=== PATIENT | male | born 1955 | race Caucasian/White ===

== ENCOUNTER 2022-04-27 18:56 | Emergency (ER) | payer OTHER ==
[~2022-04-27] VITALS: Ht 180.3 cm; Wt 99.8 kg
--- NOTE | 2022-04-27 19:14 | NUR ---
BIBS FOR R INDEX MICHELLE S/P FALL ,+ HITTING THE HEAD, TDAP NOT UPDATED,-KO. AMBULATORY, AAOX4, PLACED ON BED.
--- NOTE | 2022-04-27 19:15 | NUR ---
AT BED SIDE
--- NOTE | 2022-04-27 19:22 | NUR ---
xray at bedside
[2022-04-27] MEDS ORDERED: TDAP [DIPH/PERTUSSIS/TET] 0.5 ML VIAL IM ONE (19:26)
[2022-04-27] MEDS: TDAP [DIPH/PERTUSSIS/TET] 0.5 ML VIAL IM ONE (19:29)
--- NOTE | 2022-04-27 19:48 | NUR ---
PT BEING TRANSPORTED TO CT VIA [facility]
--- NOTE | 2022-04-27 19:55 | NUR ---
PT RETURNED FROM CT SCAN
[2022-04-27 21:40] VITALS: BP 126/60
--- NOTE | 2022-04-27 21:40 | NUR ---
Patient discharged to home in stable condition. Written and verbal after care instructions given. Patient verbalizes understanding of instruction.
== END 2022-04-27 21:40 | disposition home or self-care (01) ==
LOC: ER 18:59 → EDBD 18:59 → ER 21:40
DX: S61.210A Laceration without foreign body of right index finger without damage to nail, initial encounter (principal); I10 Essential (primary) hypertension; Z88.0 Allergy status to penicillin; W01.0XXA Fall on same level from slipping, tripping and stumbling without subsequent striking against object, initial encounter; Y93.89 Activity, other specified; Y92.89 Other specified places as the place of occurrence of the external cause; Y99.8 Other external cause status
CPT/HCPCS: 12002; 70450; 73130; 90471; 90715; 99284; A6403 ×2